=== PATIENT | male | born 1985 | race African-American/Black ===

== ENCOUNTER 2016-08-13 09:39 | Emergency (ER) | payer OTHER ==
[~2016-08-13] VITALS: Ht 175.3 cm; Wt 97.5 kg
[2016-08-13 09:40] VITALS: BP 141/102
[2016-08-13] MEDS ORDERED: LIDO:MAALOX:DONNATAL 1:1:1 15 ML SINGLE DOSE SWSW ONE (10:00)
[2016-08-13] MEDS ORDERED: ALBUTEROL SULFATE 2.5 MG/3 ML NEBU. ONE (10:08)
--- NOTE | 2016-08-13 10:09 | PHYS DOC ---
Past Medical History Past Medical History: Anxiety, Asthma Past Surgical History: No Surgical History Alcohol Use: Occasionally Drug Use: None Adult General Chief Complaint Chief Complaint: ASTHMA HPI HPI Patient is a 31 year old male who presents with complaint shortness of breath and anxiety. Patient states his symptoms started approximately 1 hour prior to arrival. Patient states that he was at work upon onset of symptoms. Patient states while trying to move objects at work he suddenly started having asthma symptoms and became very anxious. Patient states that currently his anxiety has improved however he is still having mild difficulty breathing. Patient notes that during the episode he started developing numbness around his lips and in his fingertips. Patient states that he has had history of anxiety episodes. Patient follows a Dr. Snow. The patient states that he uses an albuterol inhaler as needed for symptoms. Is not currently on any other medications. Patient did not experience any chest pain associated with this episode. Review of Systems Review of Systems Constitutional: Anxiety, denies fever or chills [] Eyes: Denies change in visual acuity, redness, or eye pain [] HENT: Denies nasal congestion or sore throat [] Respiratory: Shortness of breath [] Cardiovascular: Denies chest pain or edema [] GI: Denies abdominal pain, nausea, vomiting, bloody stools or diarrhea [] : Denies dysuria or hematuria [] Musculoskeletal: Denies back pain or joint pain [] Integument: Denies rash or skin lesions [] Neurologic: Denies headache, focal weakness or sensory changes [] Current Medications Current Medications Current Medications Medications (Trade) Dose Ordered Sig/Junito Start Time Stop Time Status Last Admin Dose Admin Albuterol Sulfate (Ventolin Neb Soln) 2.5 mg STK-MED ONCE 08/13/16 10:08 08/13/16 10:09 DC Albuterol/ Ipratropium (Duoneb) 3 ml 1X ONCE 08/13/16 10:30 08/13/16 10:31 DC Diazepam (Valium) 5 mg 1X ONCE 08/13/16 10:15 08/13/16 10:16 DC 08/13/16 10:30 5 MG Methylprednisolone Sodium Succinate (SOLU-Medrol 125MG VIAL) 125 mg 1X ONCE 08/13/16 10:30 08/13/16 10:31 Cancel Multi-Ingredient Mouthwash/Gargle (Gi Cocktail Single Dose) 15 ml 1X ONCE 08/13/16 10:00 08/13/16 10:01 Cancel Allergies Allergies Allergies Coded Allergies Type Severity Reaction Last Updated Verified No Known Drug Allergies 08/13/16 No Physical Exam Physical Exam Constitutional: Alert, obese, afebrile, appears mildly anxious. [] HENT: Normocephalic, atraumatic, bilateral external ears normal, oropharynx moist, no oral exudates, nose normal. [] Eyes: PERRLA, EOMI, conjunctiva normal, no discharge. [] Neck: Normal range of motion, no tenderness, supple, no stridor. [] Cardiovascular: Mildly restricted air movement bilaterally, no wheezes, no rhonchi, no rales [] Lungs & Thorax: Bilateral breath sounds clear to auscultation [] Abdomen: Bowel sounds normal, soft, no tenderness, no masses, no pulsatile masses. [] Skin: Warm, dry, no erythema, no rash. [] Back: No tenderness, no CVA tenderness. [] Extremities: No tenderness, no cyanosis, no clubbing, ROM intact, no edema. [] Neurologic: Alert and oriented X 3, normal motor function, normal sensory function, no focal deficits noted. [] Current Patient Data Vital Signs Vital Signs Date Time Temp Pulse Resp B/P (MAP) Pulse Ox O2 Delivery O2 Flow Rate FiO2 08/13/16 10:12 96 Room Air 08/13/16 09:40 98.3 62 18 98.3 EKG EKG Interpreted by me: Heart rate 72, sinus rhythm, leftward axis, normal intervals , no acute ST/T-wave abnormalities present [] Radiology/Procedures Radiology/Procedures [facility] [address] [place] [address] IMAGING REPORT Signed PATIENT: CHANELLE GILLIS JR ACCOUNT: [id number] : 1985 LOCATION: ER AGE: 31 SEX: M EXAM STATUS: PRE ER ORD. PHYSICIAN: THELMA HERRERA MD REASON: shortness of breath PROCEDURE: CHEST PA & LATERAL Chest, 2 views, 08/13/2016: History: Shortness of breath, asthma The heart size and pulmonary vascularity are normal. No pulmonary infiltrates are seen. There is no evidence of pleural fluid. IMPRESSION: No acute cardiopulmonary abnormality is detected. DICTATED and SIGNED BY: DESTINY GIBSON MD DATE: 08/13/16 1120 CC: THELMA HERRERA MD ~ [] Course & Med Decision Making Course & Med Decision Making Pertinent Labs and Imaging studies reviewed. (See chart for details) Patient's symptoms appear consistent with mild episodic asthma as well as an acute panic attack. The patient was given IM Valium and was given one albuterol treatment. On reevaluation, patient states that he feels much better at this time and his symptoms have resolved. Patient's chest x-ray and EKG reveal no significant abnormalities. The patient was written for an albuterol inhaler to use as needed for shortness of breath. The patient states that he has spoken with his primary physician in the past regarding anxiety symptoms and states that he does not wish to start on medication at this time. The patient will follow-up with his primary doctor in 1 week for reevaluation. Advised return to emergency department for any worsening symptoms. Patient voiced understanding and in agreement with treatment plan. Dragon Disclaimer Dragon Disclaimer This electronic medical record was generated, in whole or in part, using a voice recognition dictation system. Departure Departure Impression: Primary Impression: Asthma Additional Impression: Anxiety Disposition: 09 ADMITTED INPATIENT Condition: IMPROVED Patient Instructions: Anxiety and Panic Attacks, Asthma, Adult Additional Instructions: Follow-up with Dr. Snow in one week for reevaluation. Return to the emergency department for any worsening symptoms. Scripts Albuterol Sulfate (PROAIR HFA INHALER) 8.5 Gm Hfa.aer.ad 2 PUFF INH Q4-6HRS Y for SHORTNESS OF BREATH, #1 INHALER 0 Refills Prov: THELMA HERRERA MD 08/13/16 Problem Qualifiers Primary Impression: Asthma Asthma severity: mild intermittent Asthma complication type: uncomplicated Qualified Codes: J45.20 - Mild intermittent asthma, uncomplicated THELMA HERRERA MD August 13, 2016 10:09
[2016-08-13] MEDS ORDERED: ALBUTEROL SULFATE 2.5 MG/3 ML NEBU. NEB ONE (10:15)
--- NOTE | 2016-08-13 10:23 | RAD ---
Chest, 2 views, 08/13/2016: History: Shortness of breath, asthma The heart size and pulmonary vascularity are normal. No pulmonary infiltrates are seen. There is no evidence of pleural fluid. IMPRESSION: No acute cardiopulmonary abnormality is detected.
[2016-08-13] MEDS ORDERED: IPRATRPIUM/ALBUTEROL 0.5/2.5MG 3 ML NEBU. NEB ONE (10:30)
[2016-08-13] MEDS ORDERED: methylPREDNISolone SOD SUCC PF 125 MG/2 ML VIAL. IM ONE (10:30)
[2016-08-13] MEDS ORDERED: PROAIR HFA8.5 GM INH (11:06)
--- NOTE | 2016-08-13 16:37 | EKG ---
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
== END 2016-08-13 11:11 | disposition other institution (70) ==
LOC: ER 09:39
DX: J45.909 Unspecified asthma, uncomplicated (principal); F41.9 Anxiety disorder, unspecified
CPT/HCPCS: 71020; 93005; 94250; 94640; 96372; 99284; J3360